=== PATIENT | female | born 1960 | race Caucasian/White ===

== ENCOUNTER 2021-11-24 09:15 | Outpatient (RCR) | payer BC, SELFPAY | END 2021-11-24 14:07 | disposition home or self-care (01) | PROVIDERS: PCP Family Medicine; Visit Provider Family Medicine | DX: M62.551 Muscle wasting and atrophy, not elsewhere classified, right thigh (principal); Z51.89 Encounter for other specified aftercare | CPT/HCPCS: 97110; 97112; 97140 ==